=== PATIENT | female | born 1965 | race Caucasian/White ===

== ENCOUNTER 2017-02-22 22:14 | Emergency (ER) | payer OTHER ==
[~2017-02-22] VITALS: Ht 149.9 cm; Wt 70.0 kg
[~2017-02-22 22:14] MED LIST: AMITRIPTYLINE PO; AMLO10TA4 PO; ASPI-986 PO; DOCUSATE SODIUM PO; FOLI-43 PO; METO25TA6 PO; PREG150C PO
[2017-02-23] MEDS ORDERED: KETOROLAC 60MG/2ML VIAL IM STA (01:54)
[2017-02-23 02:47] LABS: CLARITY URINE CLEAR (CLEAR); COLOR URINE YELLOW (YELLOW); GLUCOSE URINE NEGATIVE (NEGATIVE); KETONES URINE NEGATIVE (NEGATIVE); LEUKOCYTE ESTERASE URINE NEGATIVE (NEGATIVE); NITRITE URINE NEGATIVE (NEGATIVE); OCCULT BLOOD URINE TRACE (NEGATIVE); PROTEIN URINE NEGATIVE (NEGATIVE); SPECIFIC GRAVITY URINE 1.021 (1.005-1.030); UROBILINOGEN URINE 0.2 E.U./dL (0.2-1.0)
[2017-02-23 03:10] VITALS: BP 175/77
== END 2017-02-23 03:15 | disposition home or self-care (01) ==
LOC: ER 22:14
DX: G89.29 Other chronic pain (principal); M54.5 Low back pain; I10 Essential (primary) hypertension; E78.00 Pure hypercholesterolemia, unspecified; F41.9 Anxiety disorder, unspecified
CPT/HCPCS: 81001; 81025; 96372; 99283; J1885

== ENCOUNTER 2021-08-20 08:08 | Emergency (ER) | payer OTHER ==
[~2021-08-20] VITALS: Ht 162.6 cm; Wt 75.0 kg
[2021-08-20] MEDS ORDERED: PREDNISONE 20MG TABLET PO ONE (08:30)
[2021-08-20] MEDS ORDERED: ALBUTEROL (0.083%) 2.5MG/3ML NEB HHN ONE ×2 (08:30→13:00)
[2021-08-20 10:33] LABS: BASOPHILS % 0.5 % (0.0-2.0); EOSINOPHILS % 6.8 % (0.0-5.0); HEMATOCRIT. 38.3 % (36.0-48.0); HEMOGLOBIN. 12.9 g/dL (12.0-16.0); LYMPHOCYTES % 24.4 % (20.0-50.0); MEAN CORPUSCULAR HEMOGLOBIN 30.9 pg (28.0-32.0); MEAN CORPUSCULAR VOLUME 91.7 fL (81.0-99.0); MEAN PLATELET VOLUME 8.5 fl (7.4-10.4); MONOCYTES % 9.4 % (2.0-8.0); NEUTROPHILS % 58.9 % (40.0-76.0); PLATELET 278 x1000/uL (130-400); RED BLOOD CELL COUNT 4.18 mill/uL (4.2-5.4); RED CELL DISTRIBUTION WIDTH 13.5 % (11.6-14.6)
[2021-08-20 10:41] LABS: CHLORIDE 110 mEq/L (98-107)
[2021-08-20] MEDS ORDERED: IPRATROPIUM BROMIDE (0.02%) 0.5MG/2.5ML NEB HHN ONE (13:00)
[2021-08-20] MEDS ORDERED: P20 MT (14:10)
[2021-08-20] MEDS ORDERED: ALBU6.7H9 INH (14:10)
[2021-08-20 14:33] VITALS: BP 137/64
== END 2021-08-20 14:52 | disposition home or self-care (01) ==
LOC: ER 08:08
DX: J45.901 Unspecified asthma with (acute) exacerbation (principal); E78.00 Pure hypercholesterolemia, unspecified; I10 Essential (primary) hypertension; Z79.82 Long term (current) use of aspirin; Z98.890 Other specified postprocedural states
CPT/HCPCS: 36415; 71045; 80048; 84484; 85025; 93005; 94644; 99291; J7512; Z7610; 94640

== ENCOUNTER 2021-09-05 20:37 | Emergency (ER) | payer OTHER ==
[~2021-09-05] VITALS: Ht 149.9 cm; Wt 73.0 kg
[~2021-09-05 20:37] MED LIST changes: +ALBU6.7H9 INH; +P20 MT
[2021-09-06] MEDS ORDERED: ACETAMINOPHEN 325MG TABLET PO SCH (02:05)
[2021-09-06] MEDS ORDERED: SODIUM CHLORIDE 0.9% 1,000 ML IV ONE (02:15)
[2021-09-06 03:02] LABS: CHLORIDE 106 mEq/L (98-107)
[2021-09-06 04:00] VITALS: BP 118/70
[2021-09-06 04:36] LABS: BASOPHILS % 0.3 % (0.0-2.0); EOSINOPHILS % 3.6 % (0.0-5.0); HEMATOCRIT. 33.3 % (36.0-48.0); HEMOGLOBIN. 11.2 g/dL (12.0-16.0); LYMPHOCYTES % 31.7 % (20.0-50.0); MEAN CORPUSCULAR HEMOGLOBIN 31.1 pg (28.0-32.0); MEAN CORPUSCULAR VOLUME 92.3 fL (81.0-99.0); MEAN PLATELET VOLUME 8.2 fl (7.4-10.4); MONOCYTES % 10.4 % (2.0-8.0); PLATELET 249 x1000/uL (130-400); RED BLOOD CELL COUNT 3.61 mill/uL (4.2-5.4); RED CELL DISTRIBUTION WIDTH 13.5 % (11.6-14.6)
== END 2021-09-06 05:31 | disposition home or self-care (01) ==
LOC: ER 20:37
DX: R06.02 Shortness of breath (principal); E78.00 Pure hypercholesterolemia, unspecified; M79.7 Fibromyalgia; I10 Essential (primary) hypertension; J45.909 Unspecified asthma, uncomplicated; M32.9 Systemic lupus erythematosus, unspecified; Z88.9 Allergy status to unspecified drugs, medicaments and biological substances; Z79.82 Long term (current) use of aspirin; Z90.710 Acquired absence of both cervix and uterus; Z98.890 Other specified postprocedural states
CPT/HCPCS: 36415; 71045; 80053; 82728; 83605; 83615; 84145; 84484; 85025; 85379; 93005; 96360; 99285

== ENCOUNTER 2021-11-27 22:43 | Emergency (ER) | payer OTHER | END 2021-11-27 23:19 | disposition left against medical advice (07) | LOC: ER 22:43 | DX: Z53.21 Procedure and treatment not carried out due to patient leaving prior to being seen by health care provider (principal); Z88.8 Allergy status to other drugs, medicaments and biological substances ==